=== PATIENT | male | born 1960 | race Caucasian/White ===

== ENCOUNTER 2016-03-14 15:13 | Emergency (ER) | payer OTHER ==
[~2016-03-14] VITALS: Ht 180.3 cm; Wt 83.9 kg
[~2016-03-14 15:13] MED LIST: CIPR500T94 PO; HYDR-2666 PO; LEVO75TA5 PO; MULT-208 PO; PHEN-373 PO; PRAV20TA2 PO
[2016-03-14 15:40] VITALS: BP 141/88
[2016-03-14] MEDS ORDERED: CYCLOBENZAPRINE 10 MG TABLET. PO ONE (16:15)
--- NOTE | 2016-03-14 16:15 | PHYS DOC ---
Past Medical History Past Medical History: Kidney Stone Past Surgical History: Other Additional Past Surgical Histo: inguinal hernia repair Alcohol Use: Occasionally Drug Use: None Adult General Chief Complaint Chief Complaint: LOWER EXT PAIN HPI HPI Patient is a 55 year old male presents emergency department stating that he was running yesterday when he developed pain in his patient states that he has taken 2 hydrocodone today for the pain and discomfort without any relief. He denies any numbness or tingling down to his lower extremities. He denies any recent travels. He states that he does have a family history of blood clots. He denies any numbness or tingling down into his foot. Review of Systems Review of Systems Constitutional: Denies fever or chills [] Eyes: Denies change in visual acuity, redness, or eye pain [] HENT: Denies nasal congestion or sore throat [] Respiratory: Denies cough or shortness of breath [] Cardiovascular: No additional information not addressed in HPI [] GI: Denies abdominal pain, nausea, vomiting, bloody stools or diarrhea [] : Denies dysuria or hematuria [] Musculoskeletal: Denies back pain. Pain to the right calf area Integument: Denies rash or skin lesions [] Neurologic: Denies headache, focal weakness or sensory changes [] Current Medications Current Medications Current Medications Medications (Trade) Dose Ordered Sig/[place] Start Time Stop Time Status Last Admin Dose Admin Cyclobenzaprine HCl (Flexeril) 10 mg 1X ONCE 03/14/16 16:15 03/14/16 16:16 DC 03/14/16 16:44 10 MG Allergies Allergies Allergies Coded Allergies Type Severity Reaction Last Updated Verified No Known Drug Allergies 11/27/15 No Physical Exam Physical Exam Constitutional: Well developed, well nourished, no acute distress, non-toxic appearance. [] HENT: Normocephalic, atraumatic, bilateral external ears normal, oropharynx moist, no oral exudates, nose normal. [] Eyes: PERRLA, EOMI, conjunctiva normal, no discharge. [] Neck: Normal range of motion, no tenderness, supple, no stridor. [] Cardiovascular:Heart rate regular rhythm, no murmur [] Lungs & Thorax: Bilateral breath sounds clear to auscultation [] Skin: Warm, dry, no erythema, no rash. [] Back: No tenderness Extremities: Right calf tenderness, no cyanosis, no clubbing, ROM intact, no edema. Negative Homans sign, peripheral pulses 2+ cap refill brisk less than 2 seconds. Full ROM of the ankle and foot Neurologic: Alert and oriented X 3, normal motor function, normal sensory function, no focal deficits noted. [] Psychologic: Affect normal, judgement normal, mood normal. [] Current Patient Data Vital Signs Vital Signs Date Time Temp Pulse Resp B/P Pulse Ox O2 Delivery O2 Flow Rate FiO2 03/14/16 15:40 98.3 88 18 98 Room Air 98.3 EKG EKG [] Radiology/Procedures Radiology/Procedures [][facility] [address] [place] [address] IMAGING REPORT Signed PATIENT: SAVANNA HAMILTON ACCOUNT: [id number] : 1960 LOCATION: ER AGE: 55 SEX: M EXAM STATUS: REG ER ORD. PHYSICIAN: EDION VARELA NP REASON: pain to the calf after running, family hx blood clot negative homans sign PROCEDURE: VENOUS LOWER EXTREMITY RIGHT Right lower extremity venous ultrasound, 03/14/2016 : History: Right leg pain, family history of blood clots Duplex evaluation including grayscale, color flow and spectral Doppler analysis was performed. The femoral and popliteal veins show no filling defects to suggest DVT. The visualized calf veins are unremarkable. IMPRESSION: There is no sonographic evidence of deep vein thrombosis in the right lower extremity DICTATED and SIGNED BY: TOSHIA CERVANTES MD DATE: 03/14/16 1639 CC: DEION VARELA [employer]ARCH ENGINE[employer]; NO PCP ~ Course & Med Decision Making Course & Med Decision Making Pertinent Labs and Imaging studies reviewed. (See chart for details) Patient was provided with Flexeril here in the emergency department as he had a taken hydrocodone at home. Ultrasound was negative for any DVTs. Patient will be discharged home with recommendations for ice packs on 20 minutes off 20 minutes several times a day. Also recommended ibuprofen 800 mg every 8 hours will still continue to provide him with some hydrocodone for pain and discomfort. We'll provide Flexeril as well. Patient will be instructed that the hydrocodone in the Flexeril will both cause drowsiness do not take any be alert and oriented. Patient agrees with discharge instructions treatment regimens and follow-up recommendations. [] Dragon Disclaimer Dragon Disclaimer This electronic medical record was generated, in whole or in part, using a voice recognition dictation system. Departure Departure Impression: Primary Impression: Right calf pain Disposition: HOME, SELF-CARE Condition: STABLE Referrals: UNKNOWN PCP NAME (PCP) Patient Instructions: Muscle Strain, [id number] Additional Instructions: Activity as tolerated Medication as prescribed Ibuprofen 800 mg every 8 hours with food Ice packs on 20 minutes and off 20 minutes several times a day Flexeril and [place] will cause drowsiness do not take if you need to be alert ad oriented Followup with primary care provider in 3-5 days Return to emergency department as needed for signs and symptoms that become worse. Scripts Hydrocodone/Apap 5-325 ([place] 5-325 Tablet)1 Each Tablet1 Tab PO PRN Q6HRS PRN PAIN #10 TAB Prov:DEION VARELA NP 03/14/16 Cyclobenzaprine Hcl 10 Mg Fwnunm17 Mg PO TID #30 TAB Prov:DEION VARELA [employer]INE[employer] 03/14/16 DEION VARELA [employer] ENGINEER Mar 14, 2016 16:15
--- NOTE | 2016-03-14 16:51 | RAD ---
Right lower extremity venous ultrasound, 03/14/2016 : History: Right leg pain, family history of blood clots Duplex evaluation including grayscale, color flow and spectral Doppler analysis was performed. The femoral and popliteal veins show no filling defects to suggest DVT. The visualized calf veins are unremarkable. IMPRESSION: There is no sonographic evidence of deep vein thrombosis in the right lower extremity
[2016-03-14] MEDS ORDERED: CYCL10TA2 PO (16:58)
[2016-03-14] MEDS ORDERED: HYDR-971 PO (16:58)
== END 2016-03-14 17:10 | disposition home or self-care (01) ==
LOC: ER 15:13
DX: M79.661 Pain in right lower leg (principal)
CPT/HCPCS: 93971; 99284-25